=== PATIENT | female | born 1980 | race Caucasian/White ===

== ENCOUNTER → 2016-09-26 | Outpatient (CLI) | payer BC ==
[~2016-09-26] MED LIST: MULT-1146 PO
[2016-09-26 10:24] LABS: T4 FREE 1.03 ng/dL (0.76-1.46)
== END | disposition home or self-care (01) ==
LOC: LAB 08:59
PROVIDERS: ATTEND Specialist
DX: E03.9 Hypothyroidism, unspecified (principal)
CPT/HCPCS: 36415; 84439; 84443; 84481

== ENCOUNTER → 2016-11-16 | Outpatient (CLI) | payer BC | END | disposition home or self-care (01) | LOC: RAD 11:58 | DX: M94.262 Chondromalacia, left knee (principal) | CPT/HCPCS: 73721 ==

== ENCOUNTER → 2016-12-04 | Outpatient (CLI) | payer BC ==
[2016-12-06 15:09] LABS: QFT MITOGEN VALUE 8.94 IU/mL (.); QFT TB AG MINUS NIL VALUE <0.00 IU/mL (.); QFT TB AG VALUE 0.08 IU/mL (.); QFT TB GOLD Negative (Negative)
== END | disposition home or self-care (01) ==
LOC: LAB 12:12
PROVIDERS: ATTEND Specialist
DX: Z11.1 Encounter for screening for respiratory tuberculosis (principal); E04.2 Nontoxic multinodular goiter
CPT/HCPCS: 76536; 86480

== ENCOUNTER → 2017-04-12 | Outpatient (CLI) | payer BC ==
[~2017-04-12] MED LIST changes: +LEVO25TA7 PO
[2017-04-12 07:55] LABS: BASOPHILS % 0.9 % (0.0-2.0); EOSINOPHILS % 3.2 % (0.0-5.0); HEMATOCRIT. 34.5 % (36.0-48.0); HEMOGLOBIN. 11.1 g/dL (12.0-16.0); LYMPHOCYTES % 32.4 % (20.0-50.0); MEAN CORPUSCULAR HEMOGLOBIN 23.1 pg (28.0-32.0); MEAN CORPUSCULAR VOLUME 71.8 fL (81.0-99.0); MEAN PLATELET VOLUME 7.9 fl (7.4-10.4); NEUTROPHILS % 56.5 % (40.0-76.0); PLATELET 271 x1000/uL (130-400); RED BLOOD CELL COUNT 4.81 mill/uL (4.2-5.4); RED CELL DISTRIBUTION WIDTH 16.4 % (11.6-14.6)
[2017-04-12 08:22] LABS: CHLORIDE 109 mEq/L (98-107); HDL CHOLESTEROL 61 mg/dL (40-59); LDL CHOLESTEROL 65 mg/dL (5-100); T4 FREE 1.05 ng/dL (0.76-1.46)
[2017-04-13 06:14] LABS: HIV SCREEN 4G Non Reactive (Non Reactive)
== END | disposition home or self-care (01) ==
LOC: LAB 07:35
PROVIDERS: ATTEND Specialist
DX: Z00.01 Encounter for general adult medical examination with abnormal findings (principal); E07.9 Disorder of thyroid, unspecified
CPT/HCPCS: 36415; 80061; 84439; 84443; 87186

== ENCOUNTER → 2017-04-30 | Outpatient (CLI) | payer BC ==
[~2017-04-30] MED LIST changes: -LEVO25TA7 PO
== END | disposition home or self-care (01) ==
LOC: RAD 13:30
PROVIDERS: ATTEND Obstetrics & Gynecology Obstetrics
DX: N84.0 Polyp of corpus uteri (principal)
CPT/HCPCS: 76830; 76856

== ENCOUNTER → 2017-05-29 | Day surgery (SDC) | payer BC ==
[~2017-05-29] VITALS: Ht 177.8 cm; Wt 81.6 kg
[~2017-05-29] MED LIST changes: +CEFAZOLIN SODIUM 1000MG/VIAL ONE; +DEXAMETHASONE 4MG/ML 1ML VIAL ONE; +FENTANYL CITRATE/PF 50MCG/ML 2ML VIAL IV PRN; +FENTANYL CITRATE/PF 50MCG/ML 5ML VIAL ONE; +HYDROMORPHONE HCL/PF 2MG/ML CPJ IV PRN; +KETOROLAC 30MG/ML VIAL ONE; +LACTATED RINGERS 1,000 ML IV SCH; +LEVO25TA7 PO; +LIDOCAINE HCL/PF 1% 10 MG/ML 5ML VIAL ONE; +MEPERIDINE HCL/PF 25MG/ML CPJ IV PRN; +METOCLOPRAMIDE HCL 10MG/2ML VIAL ONE; +MIDAZOLAM HCL 2 MG/2 ML VIAL ONE; +ONDANSETRON HCL 4MG/2ML VIAL IV PRN; +ONDANSETRON HCL 4MG/2ML VIAL ONE; +PROPOFOL 200MG/20ML VIAL IV ONE; +SODIUM CHLORIDE 0.9% 10ML VIAL ONE
[2017-05-29 06:29] LABS: BASOPHILS % 0.6 % (0.0-2.0); EOSINOPHILS % 1.7 % (0.0-5.0); HEMATOCRIT. 32.6 % (36.0-48.0); HEMOGLOBIN. 10.7 g/dL (12.0-16.0); LYMPHOCYTES % 29.4 % (20.0-50.0); MEAN CORPUSCULAR VOLUME 72.8 fL (81.0-99.0); MEAN PLATELET VOLUME 8.2 fl (7.4-10.4); MONOCYTES % 7.3 % (2.0-8.0); PLATELET 243 x1000/uL (130-400); RED BLOOD CELL COUNT 4.48 mill/uL (4.2-5.4); RED CELL DISTRIBUTION WIDTH 16.1 % (11.6-14.6)
[2017-05-29 06:30] LABS: CLARITY URINE CLEAR (CLEAR); COLOR URINE YELLOW (YELLOW); KETONES URINE NEGATIVE (NEGATIVE); LEUKOCYTE ESTERASE URINE TRACE (NEGATIVE); NITRITE URINE NEGATIVE (NEGATIVE); OCCULT BLOOD URINE NEGATIVE (NEGATIVE); PROTEIN URINE NEGATIVE (NEGATIVE); SPECIFIC GRAVITY URINE 1.014 (1.005-1.030); UROBILINOGEN URINE 0.2 E.U./dL (0.2-1.0)
[2017-05-29 06:33] LABS: UCG SCREEN NEGATIVE
[2017-05-29 06:39] LABS: PARTIAL THROMBOPLASTIN TIME 26.6 sec (23.4-31.0); PROTHROMBIN TIME 10.6 sec (9.4-11.6)
[2017-05-29 09:24] VITALS: BP 106/73
== END | disposition home or self-care (01) ==
LOC: OR 05:40
PROVIDERS: ATTEND Obstetrics & Gynecology Obstetrics
DX: N85.00 Endometrial hyperplasia, unspecified (principal); E03.9 Hypothyroidism, unspecified; Z87.898 Personal history of other specified conditions
CPT/HCPCS: 36415; 58558; 81003; 81025; 85025; 85610; 85730; 88305; A4216; J0690; J1100; J1170; J1885; J2250; J2405; J2765; J3010; J3490; J7120; J2704

== ENCOUNTER → 2017-09-14 | Outpatient (CLI) | payer BC ==
[~2017-09-14] MED LIST changes: -CEFAZOLIN SODIUM 1000MG/VIAL ONE; -DEXAMETHASONE 4MG/ML 1ML VIAL ONE; -FENTANYL CITRATE/PF 50MCG/ML 2ML VIAL IV PRN; -FENTANYL CITRATE/PF 50MCG/ML 5ML VIAL ONE; -HYDROMORPHONE HCL/PF 2MG/ML CPJ IV PRN; -KETOROLAC 30MG/ML VIAL ONE; -LACTATED RINGERS 1,000 ML IV SCH; -LIDOCAINE HCL/PF 1% 10 MG/ML 5ML VIAL ONE; -MEPERIDINE HCL/PF 25MG/ML CPJ IV PRN; -METOCLOPRAMIDE HCL 10MG/2ML VIAL ONE; -MIDAZOLAM HCL 2 MG/2 ML VIAL ONE; -ONDANSETRON HCL 4MG/2ML VIAL IV PRN; -ONDANSETRON HCL 4MG/2ML VIAL ONE; -PROPOFOL 200MG/20ML VIAL IV ONE; -SODIUM CHLORIDE 0.9% 10ML VIAL ONE
== END | disposition home or self-care (01) ==
LOC: RAD 09:37
PROVIDERS: ATTEND Specialist
DX: M51.36 Other intervertebral disc degeneration, lumbar region (principal); M54.5 Low back pain
CPT/HCPCS: 72040; 72080; 72100